=== PATIENT | male | born 1945 | race Caucasian/White ===

== ENCOUNTER 2019-01-18 14:31 | Outpatient (CLI) | payer MEDICARE, OTHER ==
[~2019-01-18] VITALS: Ht 171.4 cm; Wt 75.8 kg
[~2019-01-18 14:31] MED LIST: AMAN100T PO; ASP81TEC PO; BISO1TAB6 PO; CARB1TAB PO; HYDR-3583 PO; OMEP40CA36 PO; ROPI5TAB PO; SIMV40TA4 PO; TADA2.5T PO; UBID1CAP51 PO
[2019-01-18 14:47] VITALS: BP 130/84
[2019-01-18] MEDS ORDERED: UBID1CAP53 PO (15:27)
[2019-01-18] MEDS ORDERED: ROPI5TAB3 PO (15:27)
[2019-01-18] MEDS ORDERED: AMAN100C18 PO (15:27)
[2019-01-18] MEDS ORDERED: CARB1TAB44 PO (15:27)
[2019-01-18] MEDS ORDERED: ESCI10TA PO (15:27)
[2019-01-18] MEDS ORDERED: CYAN100015 SL (15:27)
[2019-01-18] MEDS ORDERED: TAMS0.4C98 PO (15:27)
[2019-01-18] MEDS ORDERED: MMT17NA NS (15:27)
[2019-01-18] MEDS ORDERED: SIMV80TA21 PO (15:27)
[2019-01-18] MEDS ORDERED: TRIH2TAB2 PO (15:27)
[2019-01-18] MEDS ORDERED: TRAZ-190 PO (15:27)
[2019-01-18] MEDS ORDERED: DONE10TA12 PO (15:27)
[2019-01-18 15:49] LABS: BASOPHILS % (AUTO) 0 % (0-10); EOSINOPHILS # (AUTO) 0.2 10^3/uL (0.0-0.3); EOSINOPHILS % (AUTO) 2 % (0-10); HEMATOCRIT 43 % (40-54); HEMOGLOBIN 14.8 G/DL (13.3-17.7); LYMPHOCYTES # (AUTO) 0.8 X 10^3 (1.0-4.0); LYMPHOCYTES % (AUTO) 11 % (12-44); MEAN CORPUSCULAR HEMOGLOBIN 33 PG (25-34); MEAN CORPUSCULAR HGB CONC 35 G/DL (32-36); MEAN CORPUSCULAR VOLUME 95 FL (80-99); MEAN PLATELET VOLUME 9.3 FL (7.4-10.4); MONOCYTES # (AUTO) 0.6 X 10^3 (0.0-1.0); MONOCYTES % (AUTO) 9 % (0-12); NEUTROPHILS # (AUTO) 5.1 X 10^3 (1.8-7.8); NEUTROPHILS % (AUTO) 77 % (42-75); PLATELET COUNT 164 10^3/uL (130-400); RED CELL DISTRIBUTION WIDTH 13.3 % (10.0-14.5); WHITE BLOOD COUNT 6.6 10^3/uL (4.3-11.0)
[2019-01-18 16:17] LABS: BUN/CREATININE RATIO 24; CALCIUM 9.2 MG/DL (8.5-10.1); CARBON DIOXIDE 22 MMOL/L (21-32); CHLORIDE 108 MMOL/L (98-107); CREATININE SERUM 0.94 MG/DL (0.60-1.30); GFR ESTIMATED > 60; GLUCOSE 88 MG/DL (70-105); POTASSIUM 3.9 MMOL/L (3.6-5.0); SODIUM 141 MMOL/L (135-145)
== END 2019-01-18 16:00 | disposition home or self-care (01) ==
LOC: PREOP 14:31
PROVIDERS: ATTEND Otolaryngology Otolaryngology/Facial Plastic Surgery
DX: Z01.818 Encounter for other preprocedural examination (principal); L98.8 Other specified disorders of the skin and subcutaneous tissue
CPT/HCPCS: 36415; 80048; 85025; 87081; 93005

== ENCOUNTER 2019-01-20 06:55 | Day surgery (SDC) | payer MEDICARE, OTHER ==
[2019-01-20] VITALS (11 sets, daily range): BP systolic 123–170; BP diastolic 70–99
[~2019-01-20] VITALS: Ht 171.4 cm; Wt 75.8 kg
[~2019-01-20 06:55] MED LIST changes: +AMAN100C18 PO; +CARB1TAB44 PO; +CYAN100015 SL; +DONE10TA12 PO; +ESCI10TA PO; +MMT17NA NS; +ROPI5TAB3 PO; +SIMV80TA21 PO; +TAMS0.4C98 PO; +TRAZ-190 PO; +TRIH2TAB2 PO; +UBID1CAP53 PO
--- OUTSIDE RECORDS SUMMARY | 2019-01-20 07:03 | XMS REPORT | Continuity of Care Document ---
Author Organization Unknown Address Unknown Phone Unavailable Allergies Active Description Code Type Severity Reaction Onset Reported/Identified Relationship to Patient Clinical Status Yes NO KNOWN DRUG ALLERGIES NO KNOWN DRUG ALLERG UNKNOWN Yes NO KNOWN DRUG ALLERGIES UNKNOWN NO KNOWN DRUG ALLERG Yes NO KNOWN DRUG ALLERGIES UNKNOWN UNKNOWN Yes No Known Drug Allergies [id number] Drug Allergy Unknown N/A 01/18/2019 Medications Medication Packaging Start Date Stop Date Route Dosage Sig ONDANSETRON VIAL INJ 4 MG/2CC (ZOFRAN 2CC VIAL) MG 08/30/2016 08/30/2016 PRN ONCE KETOROLAC VIAL INJ 30 MG/CC (TORADOL VIAL) MG 08/30/2016 08/30/2016 PRN ONCE NORMAL SALINE 1000CC IV BAG INJ 0.9 % (NS 1000CC IV BAG) ml 08/30/2016 08/30/2016 ONCE&2333 D5 1/2 NS 1000CC IV BAG INJ 0 ml 08/31/2016 09/07/2016 CONTINUOUSEVERY 0 Hour Sore Throat (phenol) spray (Chloraseptic) SPRAY 08/31/2016 09/10/2016 PRN EVERY 2 Hour ONDANSETRON VIAL INJ 4 MG/2CC (ZOFRAN 2CC VIAL) MG 08/31/2016 09/07/2016 PRN Q4H CEFTRIAXONE PREMIX IV BAG IV 1 GM/50CC (ROCEPHIN PREMIX IV BAG) GM 08/31/2016 09/06/2016 BID&0800,2000 ENOXAPARIN SYRINGE INJ 30 MG (LOVENOX SYRINGE) MG 08/31/2016 09/09/2016 Daily&0900 DONEPEZIL TAB 10 MG (ARICEPT) MG 08/31/2016 09/06/2016 Daily&0900 PANTOPAZOLE VIAL INJ 40 MG (PROTONIX IV) MG 08/31/2016 09/09/2016 Daily&0900 NORMAL SALINE 500CC IV BAG INJ 0.9 % (NS 500CC IV BAG) ml 08/31/2016 08/31/2016 ONCE&1250 Normal Saline 1000cc W/KCl 20mEq ml 08/31/2016 09/07/2016 CONTINUOUSEVERY 0 Hour ACETAMINOPHEN SUPPOS SUP 650 MG (TYLENOL) MG 08/31/2016 09/07/2016 PRN Q4H METRONIDAZOLE TAB 500 MG (FLAGYL) MG 08/31/2016 09/10/2016 TID&0800,1400,2000 METRONIDAZOLE IV PREMIX BAG INJ 500 MG/100CC (FLAGYL IV 100CC BAG) MG 08/31/2016 09/10/2016 Q8H&0600,1400,2200 CARBI/L-DOPA 25/100 TAB 0 (SINEMET 25/100) tab 08/31/2016 10/04/2016 5XD&2200 LEVALBUTEROL LIQ 1.25 MG/3ML (XOPENEX) MG 09/01/2016 09/11/2016 QID&0600,1100,1600,2100 ESCITALOPRAM TAB 10 MG (LEXAPRO) MG 09/01/2016 09/01/2016 ONCE&1700 CARBI/L-DOPA 25/100 TAB 0 (SINEMET 25/100) tab 09/01/2016 09/07/2016 Daily&1700 Normal Saline 1000cc W/KCl 20mEq ml 09/01/2016 09/08/2016 CONTINUOUSEVERY 0 Hour Amantadine HCl (Symmetrel) oral capsule 100mg MG 09/01/2016 10/01/2016 BID&0800,2000 CARBI/LEVO 25/100 CR TAB 0 (SINEMET 25/100 CR) tab 09/01/2016 09/07/2016 QHS&2100 TRAZODONE TAB 50 MG (DESYREL) MG 09/01/2016 09/07/2016 PRN QHS CARBI/L-DOPA 25/100 TAB 0 (SINEMET 25/100) tab 09/02/2016 09/11/2016 Daily&0500 ESCITALOPRAM TAB 10 MG (LEXAPRO) MG 09/02/2016 09/08/2016 Daily&0900 CARBI/L-DOPA 25/100 TAB 0 (SINEMET 25/100) tab 09/02/2016 09/11/2016 Daily&0900 DONEPEZIL TAB 10 MG (ARICEPT) MG 09/02/2016 09/08/2016 Daily&0900 CEFTRIAXONE PREMIX IV BAG IV 1 GM/50CC (ROCEPHIN PREMIX IV BAG) GM 09/02/2016 09/08/2016 Daily&0900 CARBI/L-DOPA 25/100 TAB 0 (SINEMET 25/100) tab 09/02/2016 09/08/2016 Daily&1300 ROPINIROLE TAB 5 MG (REQUIP) MG 09/02/2016 09/09/2016 TID&0800,1400,2000 CARBI/LEVO 25/100 CR TAB 0 (SINEMET 25/100 CR) tab 09/03/2016 09/09/2016 QHS&2100 NORMAL SALINE 1000CC IV BAG INJ 0.9 % (NS 1000CC IV BAG) ml 06/17/2017 07/02/2017 CONTINUOUSEVERY 0 Hour FENTANYL INJ 100 MCG/2CC VIAL MCG 06/17/2017 06/17/2017 ONCE&0749 LACTATED RINGERS 1000CC IV BAG INJ ml 10/21/2017 10/28/2017 CONTINUOUSEVERY 0 Hour FENTANYL INJ 100 MCG/2CC VIAL MCG 10/21/2017 10/21/2017 ONCE&0800 CEFAZOLIN VIAL INJ 1 GM (ANCEF) GM 10/21/2017 10/21/2017 ONCE&0815 Problems Date Dx Coded Attending Type Code Diagnosis Diagnosed By 09/18/2011 Ot 550.90 10/26/2013 TRINA LAGUNAS, GOPI Shay Ot 332.0 PARALYSIS AGITANS 10/26/2013 TRINA LAGUNAS, GOPI Shay Ot V57.1 PHYSICAL THERAPY NEC 03/25/2015 Ot 550.90 03/25/2015 Ot V72.63 03/25/2015 Ot V72.81 03/25/2015 Ot V74.8 03/25/2015 Ot 550.90 03/25/2015 Ot V72.63 03/25/2015 Ot V72.81 03/25/2015 Ot V74.8 04/22/2015 TRINA LAGUNAS, GOPI Shay Ot R42 DIZZINESS AND GIDDINESS 05/21/2016 VILMA BULL 724.2 LUMBAGO 05/21/2016 VILMA BULL M54.5 LOW BACK PAIN 08/07/2016 JUAN F FOSS 717.3 OTHER AND UNSPECIFIED DERANGEMENT OF MEDIAL MENISCUS 08/07/2016 JUAN F FOSS M23.204 DERANG OF UNSP MEDIAL MENISCUS DUE TO OLD TEAR/INJ, L KNEE 08/31/2016 Nimisha Duarte 272.4 OTHER AND UNSPECIFIED HYPERLIPIDEMIA 08/31/2016 Nimisha Duarte 332.0 PARALYSIS AGITANS 08/31/2016 Nimisha Duarte 401.9 UNSPECIFIED ESSENTIAL HYPERTENSION 08/31/2016 Nimisha Duarte 560.9 UNSPECIFIED INTESTINAL OBSTRUCTION 08/31/2016 Nimisha Duarte E78.5 HYPERLIPIDEMIA, UNSPECIFIED 08/31/2016 Nimisha Duarte G20 PARKINSON'S DISEASE 08/31/2016 Nimisha Duarte I10 ESSENTIAL (PRIMARY) HYPERTENSION 08/31/2016 Nimisha Duarte K56.60 UNSPECIFIED INTESTINAL OBSTRUCTION 09/03/2016 Nimisha Duarte 287.5 09/03/2016 Nimisha Duarte 296.90 09/03/2016 Nimisha Duarte 486 09/03/2016 Nimisha Duarte 780.93 09/03/2016 Nimisha Duarte D69.6 THROMBOCYTOPENIA, UNSPECIFIED 09/03/2016 Nimisha Duarte F39 UNSPECIFIED MOOD [AFFECTIVE] DISORDER 09/03/2016 Nimisha Duarte J18.9 PNEUMONIA, UNSPECIFIED ORGANISM 09/03/2016 Nimisha Duarte R41.3 OTHER AMNESIA 10/12/2017 JUAN F FOSS 836.0 TEAR OF MEDIAL CARTILAGE OR MENISCUS OF KNEE, CURRENT 10/12/2017 JUAN F FOSS S83.241A OTH TEAR OF MEDIAL MENISCUS, CURRENT INJURY, R KNEE, INIT 10/12/2017 JUAN F FOSS V54.89 OTHER ORTHOPEDIC AFTERCARE 10/12/2017 JUAN F FOSS Z47.89 ENCOUNTER FOR OTHER ORTHOPEDIC AFTERCARE 10/21/2017 JUAN F FOSS 716.26 ALLERGIC ARTHRITIS INVOLVING LOWER LEG 10/21/2017 JUAN F FOSS 727.05 OTHER TENOSYNOVITIS OR HAND AND WRIST 10/21/2017 JUAN F FOSS 836.0 TEAR OF MEDIAL CARTILAGE OR MENISCUS OF KNEE, CURRENT 10/21/2017 JUAN F FOSS M13.861 OTHER SPECIFIED ARTHRITIS, RIGHT KNEE 10/21/2017 JUAN F FOSS M65.9 SYNOVITIS AND TENOSYNOVITIS, UNSPECIFIED 10/21/2017 JUAN F FOSS S83.241A OTH TEAR OF MEDIAL MENISCUS, CURRENT INJURY, R KNEE, INIT 10/28/2017 JUAN F FOSS V54.89 OTHER ORTHOPEDIC AFTERCARE 10/28/2017 JUAN F FOSS Z47.89 ENCOUNTER FOR OTHER ORTHOPEDIC AFTERCARE 12/01/2017 JUAN F FOSS V54.89 OTHER ORTHOPEDIC AFTERCARE 12/01/2017 JUAN F FOSS Z47.89 ENCOUNTER FOR OTHER ORTHOPEDIC AFTERCARE 12/12/2018 W 719.46 PAIN IN JOINT INVOLVING LOWER LEG 12/12/2018 W M25.561 PAIN IN RIGHT KNEE Procedures There is no data. Results Test Result Range CBC with Auto Diff - 08/30/16 22:45 Baso% 0.00 % 0.00-2.50 Eos 0.3 K/uL 0.0-0.7 Eos% 3.0 % 0.0-7.0 Hct 53.8 % 42.0-52.0 Hgb 18.3 Result Verified by Repeat Analysis g/dL 14.0-17.0 Lym 0.10 K/uL 0.60-3.40 Lym% 1.0 % 10.0-50.0 MCH 33.1 pg 27.0-31.2 MCHC 34.0 g/dL 32.0-36.0 MCV 97.3 fL 80.0-97.0 [place]% 9.0 % 0.0-12.0 MPV 9.3 fL 7.4-10.0 [place]% 87.0 % 37.0-80.0 Plt 139 K/uL 150-400 RBC 5.53 M/uL 4.20-5.40 RDW 13.2 % 11.6-14.8 WBC 9.78 K/uL 5.00-10.00 [place]y 8.51 K/uL 2.00-6.90 [place] 0.9 K/uL 0.0-0.9 Baso 0.0 K/uL 0.0-0.2 Magnesium - 08/31/16 05:55 Mg++ 1.8 mg/dL 1.6-2.6 BMP - 09/01/16 07:44 Anion Gap 16 6-14 BUN 19 mg/dL 5-25 Calcium 8.2 mg/dL 8.3-10.4 Chloride 109 mmol/L 95-114 CO2 22 mEq/L 22-33 Creat 0.98 mg/dL 0.50-1.50 eGFR 75 mL/min/1.73m2 >59 Glucose 87 mg/dL 70-110 Osmo 297 280-295 Potassium 3.8 mmol/L 3.5-5.3 Sodium 143 mmol/L 134-148 Urinalysis - 09/01/16 08:35 Icotest N/A Negative Urine Volume Urine Volume Sufficient (10mL) Urine Yeast No Yeast present Urine-Appearance Clear Clear Urine-Bilirubin Negative Negative Urine-Blood 2+ Negative Urine-Color Yellow Colorless-Lt. Yellow Urine-Glucose Negative Negative Urine-Ketones 3+ Negative Urine-Leukocytes Negative Negative Urine-Mucus 1+ Urine-Nitrite Negative Negative Urine-Other Urine Saved if Culture Needed (48hrs from time of collection) Urine-pH 5.5 5-8.5 Urine-Protein 1+ Negative Urine-RBC 5-10/HPF Urine-Specific [place] 1.025 1.000-1.030 Urine-WBC Negative Urobilinogen 0.2 E.U./dL 0.2-1.0 CBC with Auto Diff - 09/01/16 19:00 Baso% 0.10 % 0.00-2.50 Eos 0.0 K/uL 0.0-0.7 Eos% 0.1 % 0.0-7.0 Hct 42.9 % 42.0-52.0 Hgb 14.3 g/dL 14.0-17.0 Lym 0.27 K/uL 0.60-3.40 Lym% 3.1 % 10.0-50.0 MCH 33.0 pg 27.0-31.2 MCHC 33.3 g/dL 32.0-36.0 MCV 99.1 fL 80.0-97.0 [place]% 4.3 % 0.0-12.0 MPV 9.0 fL 7.4-10.0 [place]% 92.4 % 37.0-80.0 Plt 99 Result Verified by Repeat Analysis K/uL 150-400 RBC 4.33 M/uL 4.20-5.40 RDW 13.4 % 11.6-14.8 WBC 8.68 K/uL 5.00-10.00 Cony 8.02 K/uL 2.00-6.90 [place] 0.4 K/uL 0.0-0.9 Baso 0.0 K/uL 0.0-0.2 Comprehensive Metabolic Panel - 09/01/16 19:00 Albumin 3.2 g/dL 3.6-5.1 ALP 53 U/L 35-130 ALT 7 U/L 6-45 Anion Gap 15 6-14 AST 30 U/L 2-40 BUN 16 mg/dL 5-25 Calcium 8.5 mg/dL 8.3-10.4 Chloride 115 mmol/L 95-114 CO2 20 mEq/L 22-33 Creat 0.85 mg/dL 0.50-1.50 eGFR 89 mL/min/1.73m2 >59 Globulin 2.3 g/dL 2.3-3.5 Glucose 96 mg/dL 70-110 Osmo 302 280-295 Potassium 3.6 mmol/L 3.5-5.3 Sodium 146 mmol/L 134-148 TBil 0.8 mg/dL 0.2-1.2 TP 5.5 g/dL 6.0-8.3 [facility] - 09/02/16 08:00 Anion Gap 17 6-14 BUN 15 mg/dL 5-25 Calcium 8.5 mg/dL 8.3-10.4 Chloride 114 mmol/L 95-114 CO2 19 mEq/L 22-33 Creat 0.83 mg/dL 0.50-1.50 eGFR 91 mL/min/1.73m2 >59 Glucose 88 mg/dL 70-110 Osmo 301 280-295 Potassium 3.8 mmol/L 3.5-5.3 Sodium 146 mmol/L 134-148 BNP - 09/03/16 08:00 BNP 122.10 pg/ml 0.00-100.00 Holter [place] 24 Hour - 09/03/16 13:08 Holter Monitor 24 Hour Complete [facility] - 09/07/16 10:12 Anion Gap 13 6-14 BUN 16 mg/dL 5-25 Calcium 8.4 mg/dL 8.3-10.4 Chloride 108 mmol/L 95-114 CO2 25 mEq/L 22-33 Creat 0.84 mg/dL 0.50-1.50 eGFR 90 mL/min/1.73m2 >59 Glucose 76 mg/dL 70-110 Osmo 293 280-295 Potassium 3.6 mmol/L 3.5-5.3 Sodium 142 mmol/L 134-148 Urinalysis - 05/19/17 11:19 Icotest N/A Negative Urine Volume Urine Volume Sufficient (10mL) Urine Yeast No Yeast present Urine-Appearance Clear Clear Urine-Bacteria Negative Urine-Bilirubin Negative Negative Urine-Blood Negative Negative Urine-Color Yellow Colorless-Lt. Yellow Urine-Epithelial Cells 0-5/HPF Urine-Glucose Negative Negative Urine-Ketones Negative Negative Urine-Leukocytes Negative Negative Urine-Nitrite Negative Negative Urine-Other Urine Saved if Culture Needed (48hrs from time of collection) Urine-pH 7.0 5-8.5 Urine-Protein Negative Negative Urine-RBC Negative Urine-Specific [place] 1.020 1.000-1.030 Urine-WBC Nothing Seen on Microscopic Urobilinogen 0.2 E.U./dL 0.2-1.0 Comprehensive Metabolic Panel - 06/08/17 13:43 Albumin 3.9 g/dL 3.6-5.1 ALP 96 U/L 35-130 ALT 13 U/L 6-45 Anion Gap 12 6-14 AST 62 U/L 2-40 BUN 15 mg/dL 5-25 Calcium 9.6 mg/dL 8.3-10.4 Chloride 107 mmol/L 95-114 CO2 27 mEq/L 22-33 Creat 1.10 mg/dL 0.50-1.50 eGFR 66 mL/min/1.73m2 >59 Globulin 2.7 g/dL 2.3-3.5 Glucose 113 mg/dL 70-110 Osmo 295 280-295 Potassium 4.1 mmol/L 3.5-5.3 Sodium 142 mmol/L 134-148 TBil 0.4 mg/dL 0.2-1.2 TP 6.6 g/dL 6.0-8.3 MRSA Screen - 06/08/17 13:43 FINAL CULTURE RESULTS MRSA Negative Nasal Culture MEDIA PLATED Setup at 15:10 on 06/08/2017 MRSA Screen - 10/20/17 12:29 FINAL CULTURE RESULTS MRSA Negative Nasal Culture MEDIA PLATED Setup at 13:22 on 10/20/2017 Comprehensive Metabolic Panel - 10/20/17 12:29 Albumin 4.2 g/dL 3.6-5.1 ALP 115 U/L 35-130 ALT <6 U/L 6-45 Anion Gap 16 6-14 AST 38 U/L 2-40 BUN 17 mg/dL 5-25 Calcium 9.3 mg/dL 8.3-10.4 Chloride 105 mmol/L 95-114 CO2 26 mEq/L 22-33 Creat 1.06 mg/dL 0.50-1.50 eGFR 69 mL/min/1.73m2 >59 Globulin 2.4 g/dL 2.3-3.5 Glucose 92 mg/dL 70-110 Osmo 296 280-295 Potassium 4.2 mmol/L 3.5-5.3 Sodium 143 mmol/L 134-148 TBil 0.3 mg/dL 0.2-1.2 TP 6.6 g/dL 6.0-8.3 Methicillin resistant Staphylococcus aureus (MRSA) screening culture - 01/18/19 14:30 Methicillin resistant Staphylococcus aureus (MRSA) screening culture NEG NRG Complete blood count (CBC) with automated white blood cell (WBC) differential - 01/18/19 14:55 Blood leukocytes automated count (number/volume) 6.6 10*3/uL 4.3-11.0 Blood erythrocytes automated count (number/volume) 4.47 10*6/uL 4.35-5.85 Venous blood hemoglobin measurement (mass/volume) 14.8 g/dL 13.3-17.7 Blood hematocrit (volume fraction) 43 % 40-54 Automated erythrocyte mean corpuscular volume 95 [foz_us] 80-99 Automated erythrocyte mean corpuscular hemoglobin (mass per erythrocyte) 33 pg 25-34 Automated erythrocyte mean corpuscular hemoglobin concentration measurement (mass/volume) 35 g/dL 32-36 Automated erythrocyte distribution width ratio 13.3 % 10.0- 14.5 Automated blood platelet count (count/volume) 164 10*3/uL 130-400 Automated blood platelet mean volume measurement 9.3 [foz_us] 7.4-10.4 Automated blood neutrophils/100 leukocytes 77 % 42-75 Automated blood lymphocytes/100 leukocytes 11 % 12-44 Blood monocytes/100 leukocytes 9 % 0-12 Automated blood eosinophils/100 leukocytes 2 % 0-10 Automated blood basophils/100 leukocytes 0 % 0-10 Blood neutrophils automated count (number/volume) 5.1 10*3 1.8-7.8 Blood lymphocytes automated count (number/volume) 0.8 10*3 1.0-4.0 Blood monocytes automated count (number/volume) 0.6 10*3 0.0- 1.0 Automated eosinophil count 0.2 10*3/uL 0.0-0.3 Automated blood basophil count (count/volume) 0.0 10*3/uL 0.0-0.1 Whole blood basic metabolic panel - 01/18/19 14:55 Serum or plasma sodium measurement (moles/volume) 141 mmol/L 135-145 Serum or plasma potassium measurement (moles/volume) 3.9 mmol/L 3.6-5.0 Serum or plasma chloride measurement (moles/volume) 108 mmol/L 98-107 Carbon dioxide 22 mmol/L 21-32 Serum or plasma anion gap determination (moles/volume) 11 mmol/L 5-14 Serum or plasma urea nitrogen measurement (mass/volume) 23 mg/dL 7-18 Serum or plasma creatinine measurement (mass/volume) 0.94 mg/dL 0.60-1.30 Serum or plasma urea nitrogen/creatinine mass ratio 24 NRG Serum or plasma creatinine measurement with calculation of estimated glomerular filtration rate > NRG Serum or plasma glucose measurement (mass/volume) 88 mg/dL 70-105 Serum or plasma calcium measurement (mass/volume) 9.2 mg/dL 8.5-10.1 Encounters ACCT No. Visit Date/Time Discharge Status Pt. Type Provider Facility Loc./Unit Complaint [id number] 04/22/2015 09:30:00 04/22/2015 12:13:00 DIS Outpatient GOPI MENA MD [facility],[place] [id number] 10/06/2013 14:02:00 10/26/2013 15:33:00 DIS Outpatient GOPI MENA MD [facility], [facility] TRAINING [id number] 01/20/2019 11:00:00 PEN Preadmit GETACHEW SOLANO MD [facility] SDC LESIONS [id number] 01/18/2019 14:31:00 ACT Outpatient GETACHEW SOLANO MD [facility] PREOP LESIONS [id number] 03/25/2015 08:41:00 Document Registration [id number] 09/14/2011 07:24:00 Document Registration [id number] 03/28/2015 13:06:30 ACT Document Registration [id number] 10/20/2017 12:09:00 Document Registration [id number] 04/27/2018 14:49:00 04/27/2018 23:59:00 DIS Outpatient Caity Nguyễn [id number] 12/28/2017 11:19:00 12/28/2017 23:59:00 DIS Outpatient PIPO, JUAN F [id number] 10/26/2017 10:06:00 11/25/2017 11:40:00 DIS Outpatient PIPO, JUAN F [id number] 10/21/2017 07:09:00 10/21/2017 10:25:00 DIS Outpatient PIPO, JUAN F [id number] 10/20/2017 12:09:00 10/20/2017 23:59:00 DIS Outpatient PIPO, JUAN F [id number] 10/20/2017 08:26:00 10/20/2017 23:59:00 DIS Outpatient PIPO, JUAN F [id number] 06/22/2017 09:53:00 10/12/2017 09:40:00 DIS Outpatient PIPO, JUAN F [id number] 07/21/2017 08:39:00 07/21/2017 23:59:00 DIS Outpatient PIPO, JUAN F [id number] 06/17/2017 07:52:00 06/17/2017 10:40:00 DIS Outpatient PIPO, JUAN F [id number] 06/08/2017 13:21:00 06/08/2017 23:59:00 DIS Outpatient PIPO, JUAN F [id number] 05/06/2017 13:59:00 06/08/2017 10:35:00 DIS Outpatient PIPO, JUAN F [id number] 05/19/2017 11:16:00 05/19/2017 23:59:00 DIS Outpatient Caity Nguyễn [id number] 05/02/2017 00:00:00 05/02/2017 23:59:00 DIS Outpatient PIPO, JUAN F [id number] 04/28/2017 09:34:00 04/28/2017 23:59:00 DIS Outpatient PIPO, JUAN F [id number] 04/28/2017 00:00:00 04/28/2017 00:00:00 CAN Outpatient PIPO, JUAN F [id number] 09/24/2016 08:47:00 09/24/2016 23:59:00 DIS Outpatient Caity Nguyễn [id number] 09/17/2016 11:06:00 09/17/2016 23:59:00 DIS Outpatient Caity Nguyễn [id number] 09/07/2016 10:07:00 09/07/2016 23:59:00 DIS Outpatient Caity Nguyễn [id number] 08/30/2016 22:51:00 09/03/2016 13:10:00 DIS Inpatient [facility] [id number] 07/06/2016 14:57:00 08/13/2016 09:25:00 DIS Outpatient VILMA BULL [id number] 11/30/2018 12:15:32 Document Registration [id number] 08/30/2016 23:32:40 Document Registration
[2019-01-20] MEDS: LACTATED RINGERS 1,000 ML IV PRN ×2 (07:30→09:55)
[2019-01-20] MEDS ORDERED: MUPIROCIN 2% OINT 22 GM (BACTROBAN) TUBE ONE (07:52)
[2019-01-20] MEDS ORDERED: LIDOCAINE/EPI 1%-1:100,000 (XYLOCAINE) 20ML ONE (07:52)
[2019-01-20] MEDS ORDERED: proPOfol 200 MG/20 ML (DIPRIVAN) VIAL IV ONE (08:04)
[2019-01-20] MEDS ORDERED: SEVOFLURANE (ULTANE) 15 ML INHAL SOLN ONE ×3 (08:04→10:57)
[2019-01-20] MEDS ORDERED: fentaNYL INJECTION 100 MCG/2 ML AMP ONE (08:04)
[2019-01-20] MEDS ORDERED: LIDOCAINE PF 2% 5 ML (XYLOCAINE) VIAL ONE (08:04)
[2019-01-20] MEDS ORDERED: ONDANSETRON 4 MG/2 ML (SDV) Z0FRAN ONE (08:04)
[2019-01-20] MEDS ORDERED: ROCURONIUM 10 MG/ML 5 ML SYRINGE IV ONE (09:10)
--- NOTE | 2019-01-20 09:20 | Progress Note-Pre Operative ---
Pre-Operative Progress Note H&P Reviewed The H&P was reviewed, patient examined and no changes noted. Date Seen by Provider: Jan 20, 2019 Time Seen by Provider: 09:00 Date H&P Reviewed: Jan 20, 2019 Time H&P Reviewed: 09:00 Pre-Operative Diagnosis: Exc of Forehead Lesion and Multiple Scalp Lesions GETACHEW SOLANO MD Jan 20, 2019 09:20
[2019-01-20] MEDS ORDERED: GLYCOPYRROLATE 0.2 MG/ML (ROBINUL) 2 ML VIAL ONE ×2 (10:56)
[2019-01-20] MEDS ORDERED: NEOSTIGMINE 3 MG/3 ML VIAL ONE (10:56)
--- NOTE | 2019-01-20 11:12 | Progress Note-Post Operative ---
Post-Operative Progess Note Surgeon (s)/Telephone Order Clerk (s) Surgeon GETACHEW SOLANO MD Telephone Order Clerk n/a Pre-Operative Diagnosis Exc of Forehead Lesion and Multiple Scalp Lesions Post-Operative Diagnosis same Post-Op Procedure Note Date of Procedure: Jan 20, 2019 Name of Procedure Performed: Exscision of Forehead Lesion with INtermediate Repair, Excision of Multipel Scalp Lesions with Local Flap REonstruction Description & Findings Description and Findings: n/a Anesthesia Type get Estimated Blood Loss minimal Packing none. Specimen(s) collected/removed scalp and forehead lesions for frozens-final margins clear GETACHEW SOLANO MD Jan 20, 2019 11:12
[2019-01-20] MEDS ORDERED: ACETAMINOPHEN 325 MG TABLET PO PRN (11:15)
[2019-01-20] MEDS ORDERED: ONDANSETRON 4 MG/2 ML (SDV) Z0FRAN IVP PRN (11:30)
[2019-01-20] MEDS ORDERED: morphine INJ 10 MG/ML 1ML (SYR OR VIAL) IVP ONE (11:30)
[2019-01-20] MEDS ORDERED: CEPH-507 PO (12:52)
--- NOTE | 2019-01-20 13:51 | Anesthesia-General Post-Op ---
General Patient Condition Mental Status/LOC: Same as Preop Cardiovascular: Satisfactory Nausea/Vomiting: Absent Respiratory: Satisfactory Pain: Controlled Complications: Absent Post Op Complications Complications None Follow Up Care/Instructions Patient Instructions None needed. Anesthesia/Patient Condition Patient Condition Patient was seen after the procedure and he was doing well, no complaints, stable vital signs, no apparent adverse anesthesia problems. JUDSON VALLADARES DO Jan 20, 2019 13:51
== END 2019-01-20 13:40 | disposition home or self-care (01) ==
LOC: SDC 06:55
PROVIDERS: ATTEND Otolaryngology Otolaryngology/Facial Plastic Surgery
DX: C44.42 Squamous cell carcinoma of skin of scalp and neck (principal); L57.0 Actinic keratosis; G20 Parkinson's disease; E78.5 Hyperlipidemia, unspecified; F32.9 Major depressive disorder, single episode, unspecified; F41.9 Anxiety disorder, unspecified; K21.9 Gastro-esophageal reflux disease without esophagitis; Z79.899 Other long term (current) drug therapy